=== PATIENT | male | born 1965 | race African-American/Black ===

== ENCOUNTER 2018-09-14 14:02 | Emergency (ER) | payer MEDICAID ==
[~2018-09-14 14:02] MED LIST: Iopamidol 370 76% 100 ML VIAL ONE
[2018-09-14] MEDS ORDERED: Ondansetron PF 4 MG/2 ML Vial ONE (14:10)
[2018-09-14] MEDS ORDERED: Morphine 4 MG/ML VIAL ONE (14:10)
[2018-09-14] MEDS ORDERED: Lorazepam 2 MG/ML VIAL ONE (14:17)
[2018-09-14 14:35] LABS: #Basophils 0.1 thou/uL (0.0-0.2); #Eosinphils 0.2 thou/uL (0.0-0.7); #Lymphocytes 2.2 thou/uL (1.20-3.40); #Monocytes 0.4 thou/uL (0.11-0.59); #Neutrophils 7.1 thou/uL (1.40-6.50); %Basophils 1.1 % (0.0-1.0); %Eosinophils 1.7 % (0.0-10.0); %Lymphocytes 22.3 % (21.0-51.0); %Monocytes 4.1 % (0.0-10.0); %Neutrophils 70.7 % (42.0-75.0); Hemoglobin 10.6 g/dL (14.0-18.0); Mean Corpuscular HGB CONC 30.5 g/dL (32.0-36.0); Mean Corpuscular Volume 88.3 fL (78.0-98.0); Mean Platelet Volume 7.1 fL (7.4-10.4); Platelet Count 426 thou/uL (130-400); RBC Distribution Width 17.6 % (11.5-14.5); Red Blood Cell (RBC) Count 3.93 mill/uL (4.70-6.10)
[2018-09-14] MEDS ORDERED: Promethazine HCl 25 MG/ML VIAL ONE (14:35)
[2018-09-14 14:55] LABS: ALT (SGPT) 9 U/L (8-55); AST (SGOT) 16 U/L (5-34); Albumin 4.6 g/dL (3.5-5.0); Alkaline Phosphatase 57 U/L (40-150); Anion Gap 15 mmol/L (10-20); BUN (Urea Nitrogen) 10 mg/dL (8.4-25.7); Bilirubin, Total 0.4 mg/dL (0.2-1.2); Calc. Creatinine Clearance 0 mL/min (70-130); Calcium 9.7 mg/dL (7.8-10.44); Carbon Dioxide 24 mmol/L (22-29); Chloride 107 mmol/L (98-107); Estimated GFR-MDRD 78; Globulin 3.1 g/dL (2.4-3.5); Glucose 115 mg/dL (70-105); Lipase 12 U/L (8-78); Potassium 3.6 mmol/L (3.5-5.1); Protein, Total 7.7 g/dL (6.0-8.3); Sodium 142 mmol/L (136-145)
--- NOTE | 2018-09-14 15:54 | CT ---
CT OF THE ABDOMEN AND PELVIS WITH IV CONTRAST: DATE: 09/14/2017. PROVIDED CLINICAL HISTORY: Nausea, vomiting, and abdominal pain. FINDINGS: The visualized lung bases are free of significant opacity. The liver, spleen, pancreas, kidneys, and adrenal glands demonstrate no significant abnormality. Sma ll foci of diminished attenuation are seen involving the liver which are too small to definitively ch aracterize but statistically reflect cysts. There is no bowel dilatation, inflammatory fat stranding, free fluid, or free air apparent. The appe ndix appears normal. Scattered vascular calcifications are seen. The osseous structures demonstrate no concerning osteoblastic or osteolytic lesions. Advanced change s of degenerative arthritis are seen involving the left hip. IMPRESSION: No evidence for an acute process. POS: [facility]
[2018-09-14 18:13] LABS: Bilirubin Negative (Negative); Blood, Urine Negative (Negative); Clarity CLEAR (Clear); Glucose, Urine (Dipstick) Negative (Negative); Leukocyte Negative (Negative); Nitrite Negative (Negative); Protein, Urine (Dipstick) Negative (Neg-Trace); Urobilinogen 0.2 mg/dL (0.2-1.0); pH, Urine 7.5 (5.0-9.0)
[2018-09-14 18:24] LABS: Amphetamine Not Detected (NotDetected); Barbiturates Screen Not Detected (NotDetected); Benzodiazepine Screen Detected (NotDetected); Cocaine Metabolite Screen Not Detected (NotDetected); Medtox Control Line Valid? VALID (VALID); Medtox Reader # READER 4; Methadone Not Detected (NotDetected); Methamphetamine Not Detected (NotDetected); Opiate Screen Not Detected (NotDetected); Oxycodone Screen Not Detected (NotDetected); Phencyclidine (PCP) Detected (NotDetected); THC/Cannabinoid Screen Detected (NotDetected); Tricyclic Screen Not Detected (NotDetected)
[2018-09-14 18:40] LABS: Acetaminophen Less than 6.0 mcg/mL (10.0-30.0); Alcohol Less than 10 mg/dL (Less than 10); Salicylate Less than 8.0 mg/dL (15.0-30.0)
--- NOTE | 2018-09-17 15:34 | EKG ---
Test Reason : ER INDICATION Blood Pressure : / mmHG Vent. Rate : 068 BPM Atrial Rate : 068 BPM P-R Int : 154 ms QRS Dur : 080 ms QT Int : 408 ms P-R-T Axes : 062 -13 011 degrees QTc Int : 433 ms Sinus rhythm with marked sinus arrhythmia Otherwise normal ECG Confirmed by GAY Rothman, LAURA ([id number]), video tape editor TAMARA SEGOVIA ([id number]) on 09/17/2018 3:34:35 PM Referred By: Confirmed By:LAURA RASHID M.D.
== END 2018-09-14 20:05 | disposition home or self-care (01) ==
LOC: ERS 14:02
DX: F19.10 Other psychoactive substance abuse, uncomplicated (principal); F31.9 Bipolar disorder, unspecified; F20.9 Schizophrenia, unspecified; Z79.899 Other long term (current) drug therapy
CPT/HCPCS: 36415; 74177; 80053; 80306; 80307; 81003; 82550; 83690; 84443; 85025; 93005; 96365; 96375; J2060; J2270; J2405; J2550; Q9967